=== PATIENT | male | born 1965 | race Two or more races ===

== ENCOUNTER 2018-05-22 16:26 | Emergency (ER) | payer MEDICAID ==
[~2018-05-22] VITALS: Ht 172.7 cm; Wt 77.1 kg
[~2018-05-22 16:26] MED LIST: KEP500T PO; PHE100C PO
[2018-05-22] MEDS ORDERED: SODIUM CHLORIDE 0.9% 1,000 ML IV ONE (16:39)
[2018-05-22] MEDS ORDERED: PHENYTOIN IV DILANTIN 1,000 MG in SODIUM CHL 0.9% 250 ML IV ONE (16:45)
[2018-05-22] MEDS ORDERED: LORazepam 0.5 MG TAB PO ONE (18:00)
[2018-05-22] MEDS ORDERED: PHENYTOIN SODIUM 100 MG CAP PO ONE (18:00)
[2018-05-22 19:00] VITALS: BP 140/81
== END 2018-05-22 19:20 | disposition home or self-care (01) ==
LOC: EDBD 16:26 → ER 16:43
DX: R56.9 Unspecified convulsions (principal); R51 Headache; R53.1 Weakness; R42 Dizziness and giddiness
CPT/HCPCS: 70450; 71045; 96360; 99284; J1165; J7050

== ENCOUNTER 2018-06-14 18:10 | Emergency (ER) | payer MEDICAID ==
[~2018-06-14] VITALS: Ht 172.7 cm; Wt 70.3 kg
[2018-06-14 19:59] LABS: Amphetamine Screen, Urine NEGATIVE (NEGATIVE); Barbiturate Scree,Urine NEGATIVE (NEGATIVE); Benzodiazephine Screen, Urine NEGATIVE (NEGATIVE); Cannabinoid Screen, Urine NEGATIVE (NEGATIVE); Cocaine Screen, Urine NEGATIVE (NEGATIVE); Opiate Scree,Urine NEGATIVE (NEGATIVE); Phencyclidine Screen, Urine NEGATIVE (NEGATIVE)
[2018-06-14] MEDS ORDERED: LEVETIRACETAM INJ 1,000 MG in D5W 5% 100 ML IV ONE (21:00)
[2018-06-14] MEDS ORDERED: SODIUM CHLORIDE 0.9% 1,000 ML IV ONE (21:00)
[2018-06-14] MEDS ORDERED: MULTIPLE VITAMIN 10 ML, MAGNESIUM SULF SDV 50% 8 MEQ in SODIUM CHLORIDE 0.9% 1,000 ML IV SCH (22:00)
[2018-06-14 23:11] LABS: Basophils # (auto) 0.1 uL; Basophils % (auto) 1.3 % (0.0-2.0); Eosinophils # (auto) 0.1 uL; Eosinophils % (auto) 1.3 % (0.0-7.0); Hemoglobin 13.8 g/dL (13.5-17.5); Lymphocytes # (auto) 2.5 uL; Lymphocytes % (auto) 50.3 % (10.0-50.0); Mean Corpuscular Hemoglobin 33.6 pg (28.0-32.0); Mean Corpuscular Hgb Conc. 33.7 g/dL (32.0-36.0); Mean Corpuscular Volume 99.8 fL (80.0-100.0); Monocytes # (auto) 0.2 uL; Monocytes % (auto) 4.1 % (0.0-12.0); Neutrophils # (auto) 2.1 uL; Platelet Count (auto) 178 10^3/uL (140-450); Red Blood Cells 4.11 10^6/uL (4.5-5.90); Red Cell Distribution Width 16.6 % (11.8-14.3)
[2018-06-14 23:26] LABS: Alanine Aminotransferase 67 U/L (16-61); Anion Gap 6 (5-15); Aspartate Aminotransferase 65 U/L (15-37); BUN/Creatinine Ratio 12.9; Blood Urea Nitrogen 9 mg/dL (7-18); Calcium 7.7 mg/dL (8.5-10.1); Carbon Dioxide 31 mmol/L (21-32); Chloride 110 mmol/L (98-107); GFR African American 152 mL/min; GFR Non-African American 126 mL/min; Glucose 92 mg/dL (74-106); Potassium 3.5 mmol/L (3.5-5.1); Sodium 147 mmol/L (136-145)
[2018-06-14 23:39] LABS: Alkaline Phosphatase 80 U/L (45-117); Bilirubin, Total 0.2 mg/dL (0.2-1.0); Total Protein 8.4 g/dL (6.4-8.2)
[2018-06-14 23:44] LABS: Blood Alcohol 427.1 mg/dL (0-5)
[2018-06-15] MEDS ORDERED: MVI in SODIUM CHLORIDE 0.9% 1,010 ML ONE (05:50)
[2018-06-15] MEDS ORDERED: LEVETIRACETAM 500 MG/5ML INJ IV ONE (05:52)
[2018-06-15] MEDS ORDERED: SODIUM CHLORIDE 0.9% 1,000 ML IV ONE (07:00)
[2018-06-15 11:37] VITALS: BP 110/72
== END 2018-06-15 12:24 | disposition home or self-care (01) ==
LOC: EDBD 18:10 → ER 18:12
DX: G40.909 Epilepsy, unspecified, not intractable, without status epilepticus (principal); F10.229 Alcohol dependence with intoxication, unspecified; Z79.899 Other long term (current) drug therapy; Z87.891 Personal history of nicotine dependence
CPT/HCPCS: 36415; 70450; 80053; 80185; 80307; 80320; 84484; 85025; 93005; 96365; 96366; 96367; 99284; J1953; J3411; J3475; J7030; J7060

== ENCOUNTER 2018-10-20 14:12 | Emergency (ER) | payer MEDICAID ==
[~2018-10-20] VITALS: Ht 177.8 cm; Wt 77.1 kg
[~2018-10-20 14:12] MED LIST changes: -KEP500T PO
[2018-10-20] MEDS ORDERED: SODIUM CHLORIDE 0.9% 1,000 ML IV ONE ×2 (14:35)
[2018-10-20] MEDS ORDERED: THIAMINE 100mg/ml INJ (200mg/2ml VIAL) IV ONE (14:45)
[2018-10-20] MEDS ORDERED: chlordiazePOXIDE HCL 5 MG CAP PO ONE (14:45)
[2018-10-20 15:05] LABS: Albumin 4.2 g/dL (3.4-5.0); Calcium 8.3 mg/dL (8.5-10.1); Potassium 3.6 mmol/L (3.5-5.1)
[2018-10-20 15:10] LABS: Basophils # (auto) 0.1 uL; Basophils % (auto) 1.5 % (0.0-2.0); Eosinophils # (auto) 0 uL; Hematocrit 37.5 % (41.0-53.0); Hemoglobin 12.8 g/dL (13.5-17.5); Lymphocytes # (auto) 1.6 uL; Lymphocytes % (auto) 34.8 % (10.0-50.0); Mean Corpuscular Hemoglobin 33.4 pg (28.0-32.0); Mean Corpuscular Hgb Conc. 34.2 g/dL (32.0-36.0); Mean Corpuscular Volume 97.6 fL (80.0-100.0); Monocytes # (auto) 0.3 uL; Monocytes % (auto) 5.6 % (0.0-12.0); Neutrophils # (auto) 2.6 uL; Neutrophils % (auto) 57.1 % (37.0-80.0); Nucleated Red Blood Cells % 0.1 %; Platelet Count (auto) 101 10^3/uL (140-450); Red Blood Cells 3.84 10^6/uL (4.5-5.90); Red Cell Distribution Width 16.2 % (11.8-14.3); White Blood Cell 4.6 10^3/uL (4.4-10.8)
[2018-10-20 15:26] LABS: BUN/Creatinine Ratio 15.9; Bilirubin, Total 0.4 mg/dL (0.2-1.0); Total Protein 8.6 g/dL (6.4-8.2)
[2018-10-20 15:39] LABS: Urine WBC None Seen /hpf (0 - 3)
[2018-10-20 16:07] LABS: Urine Bacteria NONE SEEN /hpf (None Seen); Urine Blood Negative /uL (Negative); Urine Specific Gravity 1.006 (1.001-1.035)
[2018-10-20 16:13] LABS: Amphetamine Screen, Urine NEGATIVE (NEGATIVE); Barbiturate Scree,Urine NEGATIVE (NEGATIVE); Benzodiazephine Screen, Urine NEGATIVE (NEGATIVE); Cannabinoid Screen, Urine NEGATIVE (NEGATIVE); Cocaine Screen, Urine NEGATIVE (NEGATIVE); Phencyclidine Screen, Urine NEGATIVE (NEGATIVE)
[2018-10-20 16:22] LABS: Opiate Scree,Urine NEGATIVE (NEGATIVE)
[2018-10-20] MEDS ORDERED: LEVETIRACETAM 500 MG TAB PO ONE (18:30)
[2018-10-21 14:48] VITALS: BP 119/74
== END 2018-10-21 14:49 | disposition home or self-care (01) ==
LOC: EDUNIT# 14:12 → EDBD 14:12 → ER 14:20
DX: F10.129 Alcohol abuse with intoxication, unspecified (principal); G40.909 Epilepsy, unspecified, not intractable, without status epilepticus; R42 Dizziness and giddiness; R51 Headache; Z87.891 Personal history of nicotine dependence; Y90.8 Blood alcohol level of 240 mg/100 ml or more
CPT/HCPCS: 36415; 70450; 80053; 80307; 80320; 81001; 82542; 85025; 96361; 96374; 99284; J3411; J7030

== ENCOUNTER 2018-11-16 11:38 | Inpatient (IN) | payer MEDICAID ==
[~2018-11-16] VITALS: Ht 170.2 cm; Wt 63.2 kg
[2018-11-16] MEDS ORDERED: SODIUM CHLORIDE 0.9% 1,000 ML IV ONE ×2 (11:47)
[2018-11-16] MEDS ORDERED: chlordiazePOXIDE HCL 5 MG CAP PO ONE (12:00)
[2018-11-16] MEDS ORDERED: THIAMINE 100mg/ml INJ (200mg/2ml VIAL) IV ONE (12:00)
[2018-11-16] MEDS ORDERED: ONDANSETRON HCL 4 MG/2 ML VIAL IV ONE (12:00)
[2018-11-16 13:13] LABS: Basophils # (auto) 0 uL; Basophils % (auto) 0.5 % (0.0-2.0); Eosinophils # (auto) 0 uL; Hematocrit 34.8 % (41.0-53.0); Hemoglobin 11.6 g/dL (13.5-17.5); Lymphocytes # (auto) 0.2 uL; Lymphocytes % (auto) 3.8 % (10.0-50.0); Mean Corpuscular Hgb Conc. 33.3 g/dL (32.0-36.0); Monocytes # (auto) 0.2 uL; Monocytes % (auto) 3.5 % (0.0-12.0); Neutrophils # (auto) 5.1 uL; Neutrophils % (auto) 92.2 % (37.0-80.0); Platelet Count (auto) 73 10^3/uL (140-450); Red Blood Cells 3.51 10^6/uL (4.5-5.90); Red Cell Distribution Width 15.2 % (11.8-14.3); White Blood Cell 5.5 10^3/uL (4.4-10.8)
[2018-11-16 13:28] LABS: INR 1.02 (0.9-1.15); Partial Thromboplastin Time 25.1 sec (23.64-32.05)
[2018-11-16 13:30] LABS: Albumin 4.3 g/dL (3.4-5.0); Anion Gap 13 (5-15); Blood Urea Nitrogen 10 mg/dL (7-18); Calcium 8.6 mg/dL (8.5-10.1); Carbon Dioxide 27 mmol/L (21-32); Chloride 97 mmol/L (98-107); Glucose 101 mg/dL (74-106); Potassium 3.3 mmol/L (3.5-5.1); Sodium 137 mmol/L (136-145)
[2018-11-16 13:37] LABS: Alanine Aminotransferase 60 U/L (16-61); Alkaline Phosphatase 74 U/L (45-117); Aspartate Aminotransferase 118 U/L (15-37); BUN/Creatinine Ratio 13.5; Blood Alcohol < 3.0 mg/dL (0-5); GFR African American 143 mL/min; GFR Non-African American 118 mL/min; Total Protein 8.5 g/dL (6.4-8.2)
[2018-11-16] MEDS ORDERED: cefTRIAXone 1GM/50ML D5W 50 ML IV ONE (16:15)
[2018-11-16] MEDS ORDERED: MORPHINE SULF INJ 2 MG/ML SYRINGE 1ML IV PRN ×2 (16:45)
[2018-11-16] MEDS ORDERED: LORazepam 2MG/ML-1ML VIAL IV PRN (16:45)
[2018-11-16] MEDS ORDERED: cloNIDine HCL 0.1 MG TAB PO PRN (16:45)
[2018-11-16] MEDS ORDERED: NITROGLYCERIN 0.4 MG SL TAB SL PRN (16:45)
[2018-11-16] MEDS ORDERED: ONDANSETRON HCL 4 MG/2 ML VIAL IV PRN (16:45)
[2018-11-16] MEDS ORDERED: HYDROcodone-ACET 5/325MG TAB PO PRN (16:45)
[2018-11-16] MEDS ORDERED: ACETAMINOPHEN 500 MG TAB PO PRN (16:45)
[2018-11-16] MEDS ORDERED: IPRATROPIUM BROM 0.5 MG/2.5ML INH SOL NEB SCH (18:00)
[2018-11-16] MEDS ORDERED: ALBUTEROL SULF 2.5 MG/0.5ML(0.5%) NEB SOLN NEB SCH (18:00)
--- NOTE | 2018-11-16 18:17 | NUR ---
Telemetry admit from ER MARILY LASSITER admitted to Telemetry unit after SBAR received. Patient oriented to Julia Hanson RN primary RN, unit, room, bed, and unit policies regarding patient care and visiting hours. Patient now on continuous telemetry monitoring, tele box #9. Patient weighed by bed scale and encouraged to call if they need something. All questions and concerns addressed, patient verbalized understanding. Note: Patient temp 100.4, vomiting and nausea upon arrival. Cooling measures applied, will medicate as ordered. Iv line flushed, patent, no redness.
[2018-11-16] MEDS: chlordiazePOXIDE HCL 5 MG CAP PO SCH ×2 (18:19→21:34)
[2018-11-16] MEDS: LEVOFLOXACIN 500 MG TAB PO SCH (18:21)
[2018-11-16 18:57] VITALS: BP 139/90
[2018-11-16] MEDS: FOLIC ACID 1 MG, MULTIPLE VITAMIN 10 ML, MAGNESIUM SULF SDV 50% 8 MEQ, THIAMINE INJ 100... INJ SCH ×5 (19:00)
--- NOTE | 2018-11-16 19:00 | NUR ---
Opening Shift Note Assumed care of patient, awake and alert. No S/S of distress/SOB or pain. Instructed on POC and to call for assist PRN, will continue to monitor for changes Q1hr and PRN.
--- NOTE | 2018-11-16 19:56 | NUR ---
Respiratory note: ASSESSMENT FOR PRN MED NEB TX. HR 84, SPO2 93% ON ROOM AIR, RR 18, BS DIMINISHED. PT PRESENTING NO RESPIRATORY DISTRESS AT THIS TIME, PT AWARE TO HAVE RN PAGE RT IF MED ENB TX IS NEEDED, WILL CONTINUE TO MONITOR.
[2018-11-16 20:16] VITALS: BP 139/90
[2018-11-16] MEDS: NYSTATIN TOPICAL CREAM 15GM TOP SCH (21:34)
[2018-11-16] MEDS: DOCUSATE SOD 100 MG CAP PO SCH (21:34)
[2018-11-16] MEDS ORDERED: LEVETIRACETAM 500 MG/5ML INJ IV ONE (22:06)
[2018-11-16] MEDS: LEVETIRACETAM INJ 1,000 MG in D5W 5% 100 ML IV SCH (22:22)
[2018-11-17] MEDS: chlordiazePOXIDE HCL 5 MG CAP PO SCH ×4 (05:31→21:32)
[2018-11-17 05:34] VITALS: BP 122/75
[2018-11-17 05:55] LABS: Urine WBC None Seen /hpf (0 - 3)
[2018-11-17 06:11] LABS: Urine Bacteria NONE SEEN /hpf (None Seen); Urine Blood Negative /uL (Negative); Urine Specific Gravity 1.005 (1.001-1.035)
[2018-11-17 06:58] LABS: Basophils # (auto) 0 uL; Basophils % (auto) 0.5 % (0.0-2.0); Eosinophils # (auto) 0 uL; Eosinophils % (auto) 0.3 % (0.0-7.0); Hemoglobin 11.6 g/dL (13.5-17.5); Lymphocytes # (auto) 0.8 uL; White Blood Cell 5.6 10^3/uL (4.4-10.8)
[2018-11-17 07:01] LABS: Hematocrit 34.6 % (41.0-53.0); Lymphocytes % (auto) 15.2 % (10.0-50.0); Mean Corpuscular Hemoglobin 33.2 pg (28.0-32.0); Mean Corpuscular Hgb Conc. 33.6 g/dL (32.0-36.0); Mean Corpuscular Volume 98.7 fL (80.0-100.0); Monocytes # (auto) 0.5 uL; Monocytes % (auto) 8.6 % (0.0-12.0); Neutrophils # (auto) 4.2 uL; Neutrophils % (auto) 75.4 % (37.0-80.0); Nucleated Red Blood Cells % 0.1 %; Platelet Count (auto) 59 10^3/uL (140-450); Red Blood Cells 3.51 10^6/uL (4.5-5.90); Red Cell Distribution Width 15.5 % (11.8-14.3)
[2018-11-17 07:13] LABS: BUN/Creatinine Ratio 12.9; Calcium 8.5 mg/dL (8.5-10.1); Potassium 3.2 mmol/L (3.5-5.1)
--- NOTE | 2018-11-17 07:30 | NUR ---
Open Shift Note Received report on patient, awake and lying in bed. Patient's linens soiled. Helped patient to ambulate to restroom, had bowel movement and stated it was diarrhea. Bed linens changed and patient ambulated with assistance back to bed. Discussed POC with patient. Bed in lowest locked position, side rails up x2 and call light within reach. Will continue to monitor.
[2018-11-17 08:00] VITALS: BP 127/82
[2018-11-17] MEDS: DOCUSATE SOD 100 MG CAP PO SCH ×2 (10:00→21:32)
[2018-11-17] MEDS: FAMOTIDINE 20 MG TAB PO SCH (10:58)
[2018-11-17] MEDS: LEVOFLOXACIN 500 MG TAB PO SCH (10:58)
[2018-11-17] MEDS: LEVETIRACETAM INJ 1,000 MG in D5W 5% 100 ML IV SCH (10:58)
[2018-11-17] MEDS: NYSTATIN TOPICAL CREAM 15GM TOP SCH ×2 (11:10→21:33)
--- NOTE | 2018-11-17 11:30 | NUR ---
WOUND CARE NOTE: PATIENT ADMITTED TO [facility] WITH DIAGNOSIS OF BREAKTHROUGH SEIZURES. CURRENT PENG SCORE IS 21. PATIENT IS ABLE TO AMBULATE, SELF TURN/REPOSITION SELF WHEN IN BED. PATIENT NOTED UPON ADMIT TO HAVE SKIN INTEGRITY ISSUES CONSISTING OF AN INTACT CALLOUSED CORN TO THE LEFT # 2 TOE, AN INTACT RASH TO THE GROIN, AND SKIN PATCHES TO BILATERAL LOWER EXTREMITIES. ALL SKIN INTEGRITY AREAS PHOTOGRAPHED UPON ADMIT BY BEDSIDE NURSE FOR REFERENCE. ALL AREAS LEFT OPEN TO AIR. HOSPITALIST HAS ORDERED FOR ANTIFUNGAL CREAM FOR HIS SKIN RASH/PATCH AREAS, NO DRESSING REQUIRED FOR CORN ON TOE. NO NEED FOR WOUND CARE TEAM AT THIS TIME.
[2018-11-17 12:00] VITALS: BP 129/69
--- NOTE | 2018-11-17 12:04 | NUR ---
Received referral to see pt as he is homeless. Pt is alert and oriented times 3. Pt states he lives in [place]. He has a sister up here in the [facility] but cannot live there. Pt states he cannot get his medicine for his seizures so he has been unable to get them under control. Pt's last 5 admission to the hospital have been for non compliance. Pt has medi-lupe but states he has been unable to get his prescription. iron worker apprentice explained that all he has to do is show his medi-lupe card. Pt has no income and did not file the paperwork to get food stamps. Pt will not be able to go into the [facility] as he has no ID. Gave pt resources.
[2018-11-17] MEDS: FOLIC ACID 1 MG, MULTIPLE VITAMIN 10 ML, MAGNESIUM SULF SDV 50% 8 MEQ, THIAMINE INJ 100... INJ SCH ×5 (12:30)
[2018-11-17 16:00] VITALS: BP 120/68
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
--- NOTE | 2018-11-17 18:58 | NUR ---
End of Shift Patient lying in bed, showing no signs of distress at this time. Bed in lowest locked position, side rails up x2 and call light within reach. Endorsed care to [facility] nurse Dawson.
[2018-11-17] MEDS: POTASSIUM CHL 20 Meq TABLET PO SCH (21:32)
[2018-11-17] MEDS: LEVETIRACETAM 500 MG TAB PO SCH (21:32)
[2018-11-17 22:00] VITALS: BP 115/77
--- NOTE | 2018-11-18 01:55 | NUR ---
REINALDO called: REINALDO called RN regarding patient's HR being in the 140's. RN checked on patient and patient was noted to be in the restroom having a BM. Patient made a large mess on the bathroom floor and was attempting to clean up the mess. RN helped patient back into bed and HR was noted to return to normal and in the 90's. Patient comfortable with no complaints of pain or distress.
[2018-11-18 05:00] VITALS: BP 118/78
[2018-11-18] MEDS: chlordiazePOXIDE HCL 5 MG CAP PO SCH ×2 (05:41→12:34)
--- NOTE | 2018-11-18 07:25 | NUR ---
Open Shift Note Received report on patient, asleep in bed with covers over head. Patient easily awoken, shows no signs of distress at this time. Patient states they feel as if one of their medications is causing them to have multiple bowel movements and would like to bring it up to the doctor today. Discussed POC with patient. Bed in lowest locked position, side rails up x2 and call light within reach. Will continue to monitor.
--- NOTE | 2018-11-18 07:30 | NUR ---
Respiratory UNABLE TO ASSESS PATIENT PRN DUE TO PATIENT NOT BEING IN ROOM.
[2018-11-18 08:00] VITALS: BP 118/76
[2018-11-18] MEDS: FAMOTIDINE 20 MG TAB PO SCH (09:45)
[2018-11-18] MEDS: POTASSIUM CHL 20 Meq TABLET PO SCH (09:45)
[2018-11-18] MEDS: LEVOFLOXACIN 500 MG TAB PO SCH (09:45)
[2018-11-18] MEDS: NYSTATIN TOPICAL CREAM 15GM TOP SCH (09:45)
[2018-11-18] MEDS: LEVETIRACETAM 500 MG TAB PO SCH (09:45)
[2018-11-18] MEDS: DOCUSATE SOD 100 MG CAP PO SCH (09:47)
[2018-11-18] MEDS ORDERED: POTASSIUM CHL 10 Meq TABLET PO ONE (11:30)
[2018-11-18 12:00] VITALS: BP 102/61
[2018-11-18] MEDS: FOLIC ACID 1 MG, MULTIPLE VITAMIN 10 ML, MAGNESIUM SULF SDV 50% 8 MEQ, THIAMINE INJ 100... INJ SCH ×5 (12:00)
--- NOTE | 2018-11-18 14:00 | NUR ---
Respiratory note: UNABLE TO ASSESS PATIENT FOR A/AQ4 PRN, DUE TO PATIENT BEING DISCHARGED.
--- NOTE | 2018-11-18 14:05 | NUR ---
Patient Refused Discharge Photos Patient stated "I just put my pants on and it was really difficult". Patient refused for photos to be taken of legs and foot.
--- NOTE | 2018-11-18 14:25 | NUR ---
Discharged Discharge instructions given as ordered. Patient has no primary care provider but was given information for Josee Salmeron to help set up provider. All questions and concerns addressed. Patient verbalized understanding. Prescriptions given to patient. IV removed with catheter intact, pressure dressing applied. Patient given bus pass and stated he has a place he can go to stay. Telemetry unit returned to REINALDO. Patient taken to lobby via wheelchair with all personal belongings, accompanied by staff. No distress noted at time of departure.
== END 2018-11-18 16:02 | disposition home or self-care (01) | DRG 53 ==
LOC: EDBD 11:38 → ER 11:43 → TELE 11:44 → TELE-EAST 18:10
PROVIDERS: ADMIT Nurse Practitioner Acute Care; ATTEND Internal Medicine Pulmonary Disease
DX: G40.509 Epileptic seizures related to external causes, not intractable, without status epilepticus (principal); E87.1 Hypo-osmolality and hyponatremia; F10.230 Alcohol dependence with withdrawal, uncomplicated; E87.6 Hypokalemia; L03.031 Cellulitis of right toe; Z59.0 Homelessness; Z80.0 Family history of malignant neoplasm of digestive organs; Z82.49 Family history of ischemic heart disease and other diseases of the circulatory system; Z91.14 Patient's other noncompliance with medication regimen; Z87.891 Personal history of nicotine dependence; Z79.899 Other long term (current) drug therapy; Y90.9 Presence of alcohol in blood, level not specified
CPT/HCPCS: 36415; 70450; 71045; 80048; 80053; 80320; 81001; 83735; 84132; 84484; 85025; 85610; 85730; 87081; 93005; 96361; 96365; 96375; G0378; J0696; J2405; J7060

== ENCOUNTER 2019-02-21 16:30 | Inpatient (IN) | payer MEDICAID ==
[~2019-02-21] VITALS: Ht 160 cm; Wt 70.7 kg
[2019-02-21 17:48] LABS: Basophils # (auto) 0.1 uL; Eosinophils # (auto) 0.1 uL; Lymphocytes # (auto) 0.8 uL; Monocytes # (auto) 0.5 uL; Monocytes % (auto) 8.3 % (0.0-12.0)
[2019-02-21 17:49] LABS: Basophils % (auto) 1.1 % (0.0-2.0); Eosinophils % (auto) 1.5 % (0.0-7.0); Hematocrit 34.2 % (41.0-53.0); Hemoglobin 11.4 g/dL (13.5-17.5); Lymphocytes % (auto) 11.9 % (10.0-50.0); Mean Corpuscular Hgb Conc. 33.5 g/dL (32.0-36.0); Mean Corpuscular Volume 98.3 fL (80.0-100.0); Neutrophils # (auto) 5.1 uL; Neutrophils % (auto) 77.2 % (37.0-80.0); Platelet Count (auto) 164 10^3/uL (140-450); Red Blood Cells 3.47 10^6/uL (4.5-5.90); Red Cell Distribution Width 18.2 % (11.8-14.3); White Blood Cell 6.6 10^3/uL (4.4-10.8)
[2019-02-21 18:06] LABS: Albumin 3.5 g/dL (3.4-5.0); Anion Gap 9 (5-15); Aspartate Aminotransferase 132 U/L (15-37); BUN/Creatinine Ratio 12.1; Blood Urea Nitrogen 7 mg/dL (7-18); Calcium 8.2 mg/dL (8.5-10.1); Carbon Dioxide 27 mmol/L (21-32); Chloride 107 mmol/L (98-107); GFR African American 188 mL/min; GFR Non-African American 156 mL/min; Glucose 140 mg/dL (74-106); Potassium 3.3 mmol/L (3.5-5.1); Sodium 143 mmol/L (136-145)
[2019-02-21 18:08] LABS: Lactic Acid w/Reflex 3.4 mmol/L (0.4-2.0)
[2019-02-21 18:11] LABS: Alanine Aminotransferase 70 U/L (16-61); Alkaline Phosphatase 76 U/L (45-117); Bilirubin, Total 0.3 mg/dL (0.2-1.0); Total Protein 7.9 g/dL (6.4-8.2)
[2019-02-22] MEDS ORDERED: VANCOMYCIN PER PHARMACY 0 MG IV SCH (03:15)
[2019-02-22] MEDS ORDERED: SODIUM CHLORIDE 0.9% 2,200 ML IV ONE (03:15)
[2019-02-22] MEDS ORDERED: VANCOMYCIN 1GM/250ML 250 ML IV ONE (04:00)
[2019-02-22] MEDS: PIPERACILLIN-TAZOB 3.375GM 100 ML IV SCH ×3 (04:27→17:22)
[2019-02-22 04:52] LABS: INR 0.95 (0.9-1.15); Partial Thromboplastin Time 24.8 sec (23.64-32.05)
[2019-02-22 05:51] LABS: Albumin 3.3 g/dL (3.4-5.0); BUN/Creatinine Ratio 13.3; Calcium 7.9 mg/dL (8.5-10.1); Potassium 3.6 mmol/L (3.5-5.1)
[2019-02-22 05:54] LABS: Bilirubin, Total 0.3 mg/dL (0.2-1.0); Total Protein 7.7 g/dL (6.4-8.2)
[2019-02-22 08:21] LABS: Urine WBC None Seen /hpf (0 - 3)
[2019-02-22 08:45] LABS: Urine Bacteria NONE SEEN /hpf (None Seen); Urine Blood Negative /uL (Negative); Urine Specific Gravity 1.017 (1.001-1.035)
[2019-02-22] MEDS ORDERED: MORPHINE SULF INJ 2 MG/ML SYRINGE 1ML IV PRN (10:00)
[2019-02-22] MEDS ORDERED: NITROGLYCERIN 0.4 MG SL TAB SL PRN (10:00)
[2019-02-22] MEDS ORDERED: DEXTROSE (50%) 50ML SYRG IV PRN (10:00)
[2019-02-22] MEDS ORDERED: LACTULOSE 20Gm/30ML SOLN PO PRN (10:00)
[2019-02-22] MEDS ORDERED: PROMETHAZINE HCL 25 MG/ML 1ML IV PRN (10:00)
[2019-02-22] MEDS ORDERED: TEMAZEPAM 15 MG CAP PO PRN (10:00)
[2019-02-22] MEDS ORDERED: LORazepam 0.5 MG TAB PO PRN (10:00)
[2019-02-22] MEDS ORDERED: chlordiazePOXIDE HCL 25 MG CAP PO PRN (10:15)
[2019-02-22] MEDS ORDERED: THIAMINE 100mg/ml INJ (200mg/2ml VIAL) IV ONE (10:15)
[2019-02-22] MEDS: SODIUM CHLORIDE 0.9% 1,000 ML IV SCH ×2 (10:55→20:38)
[2019-02-22] MEDS: ENOXAPARIN SOD 40 MG/0.4 ML SYRINGE SC SCH (10:55)
[2019-02-22] MEDS: InsuLIN REG 1unit/0.01ml Soln (100units/ml) SC SCH ×3 (11:30→21:02)
--- NOTE | 2019-02-22 12:09 | NUR ---
PT ADMITTED TO FLOOR VIA GURNEY FROM E.R.. PT REPORTS 8/10 PAIN IN BILATERAL LOWER EXTREMITIES. LEGS BANDAGED IN E.R. ER NURSE REPORTS PHOTOS ALREADY TAKEN OF WOUNDS. PT ORIENTED TO CALL LIGHT AND UNIT. BED IN LOWEST LOCKED POSITION, SIDE RAILS UP X2. VITALS: BP 130/81, HR 97, RR 20, 02 95, T 99.2. WILL CONTINUE TO MONITOR.
[2019-02-22] MEDS: ACCU-CHEK COMFORT CURVE STRIP VI SCH ×3 (12:42→21:02)
[2019-02-22] MEDS: chlordiazePOXIDE HCL 5 MG CAP PO SCH ×3 (12:43→19:15)
[2019-02-22] MEDS ORDERED: CHL10C PO (12:51)
[2019-02-22] MEDS ORDERED: LEVE500T22 PO (12:51)
[2019-02-22] MEDS: ACETAMINOPHEN 500 MG TAB PO PRN ×2 (13:56→21:36)
--- NOTE | 2019-02-22 14:29 | NUR ---
WOUND CARE PT RIGHT AND LEFT LEG WOUNDS CLEANSED WITH WOUND CLEANSER, PATTED DRY WITH 4X4 GAUZE. THERAHONEY APPLIED, AND COVERED WITH OPTIFOAM AND KERLIX.
[2019-02-22 17:00] VITALS: BP 126/77
--- NOTE | 2019-02-22 19:14 | NUR ---
SEIZURE MYSQL DATABASE ADMINISTRATOR REPORTS PT USED CALL LIGHT TO USE COMMODE. ENTERED ROOM, PT LAYING SIDEWAYS ON BED, FEET TOUCHING FLOOR. PT SHAKING AND NOT RESPONDING TO QUESTIONS OR SHAKING. PT URINATED ON CLOTHES AND BED. CALLED FOR HELP. 02 PUT ON PATIENT AT 2L NC, PATIENT LEGS PLACED BACK ON BED. [id number], HR 103, 02 98, 100.3, RR 18. PT BECAME RESPONSIVE TO QUESTIONS WITHIN A FEW MINUTES BUT REMAINED CONFUSED, PT KNEW NAME AND , BUT NOT WHEREABOUTS OR PRESIDENT. NO IV ATIVAN AVAILABLE. ATTEMPTED TO GIVE PT PRN ANXIETY ATIVAN AND PT SPIT IT OUT. CHANGED PT BEDDING AND CLEANED PATIENT. PT BECAME MORE ALERT. ATTEMPTED TO GIVE ATIVAN AGAIN, PT ACCEPTED. ORIGINAL BED ALARM WAS BROKEN AND KEPT SOUNDING ONCE BED WAS TURNED ON, BED REPLACED WITH ALARM ON. PAGED HOSPITALIST, DR RENNER CALLED BACK. NOTIFIED PT HAD A SEIZURE AND WAS CONFUSED. REQUESTED ATIVAN IV. AWARE AND REPORTS HE WILL PUT IN ORDERS. Addendum: 02/22/19 at 1928 by JOHNNIE DIAZ RN SIDE RAILS PADDED, BED IN LOWEST LOCKED POSITION, SIDE RAILS UP X2, CALL LIGHT IN REACH.
[2019-02-22] MEDS: LEVETIRACETAM 500 MG TAB PO SCH ×2 (19:15→20:49)
[2019-02-22] MEDS ORDERED: LORazepam 2MG/ML-1ML VIAL IV PRN (19:15)
[2019-02-22] MEDS ORDERED: chlordiazePOXIDE HCL 25 MG CAP PO ONE (19:15)
--- NOTE | 2019-02-22 19:50 | NUR ---
Opening Shift Note Assumed care of patient, awake and alert, oriented x 4, follows direction, clear speech. On oxygen at 2L via NC, even and unlabored respirations, no S/S of distress. Dressing to bilateral legs clean, dry and intact. Patient turns independently in bed. Bed low locked position with side rails up x 2 and call light within reach, bed alarm on. Instructed on POC and to call for assist PRN, will continue to monitor for changes Q1hr and PRN.
[2019-02-22] MEDS: VANCOMYCIN 1,250 MG in D5W 5% 250 ML IV SCH (20:58)
[2019-02-22] MEDS ORDERED: PHENYTOIN SODIUM 100 MG CAP PO SCH (22:00)
[2019-02-22 23:20] VITALS: BP 127/73
[2019-02-23] MEDS: chlordiazePOXIDE HCL 5 MG CAP PO SCH ×4 (00:42→18:00)
[2019-02-23] MEDS: PIPERACILLIN-TAZOB 3.375GM 100 ML IV SCH ×4 (00:42→18:00)
[2019-02-23 05:15] LABS: Basophils # (auto) 0 uL; Basophils % (auto) 0.8 % (0.0-2.0); Eosinophils # (auto) 0 uL; Eosinophils % (auto) 0.5 % (0.0-7.0); Hematocrit 32.9 % (41.0-53.0); Hemoglobin 11.1 g/dL (13.5-17.5); Lymphocytes # (auto) 0.8 uL; Lymphocytes % (auto) 13.6 % (10.0-50.0); Mean Corpuscular Hemoglobin 33.3 pg (28.0-32.0); Mean Corpuscular Hgb Conc. 33.8 g/dL (32.0-36.0); Mean Corpuscular Volume 98.5 fL (80.0-100.0); Monocytes # (auto) 0.7 uL; Monocytes % (auto) 12.1 % (0.0-12.0); Neutrophils # (auto) 4.1 uL; Platelet Count (auto) 135 10^3/uL (140-450); Red Blood Cells 3.34 10^6/uL (4.5-5.90); Red Cell Distribution Width 17.5 % (11.8-14.3); White Blood Cell 5.6 10^3/uL (4.4-10.8)
[2019-02-23 05:22] VITALS: BP 128/68
[2019-02-23 05:57] LABS: Anion Gap 7 (5-15); Carbon Dioxide 28 mmol/L (21-32); Chloride 103 mmol/L (98-107); Glucose 89 mg/dL (74-106); Potassium 4.1 mmol/L (3.5-5.1); Sodium 138 mmol/L (136-145)
[2019-02-23 05:58] LABS: Alanine Aminotransferase 43 U/L (16-61); Albumin 2.9 g/dL (3.4-5.0); Alkaline Phosphatase 67 U/L (45-117); Aspartate Aminotransferase 54 U/L (15-37); BUN/Creatinine Ratio 16.4; Bilirubin, Total 1.1 mg/dL (0.2-1.0); Blood Urea Nitrogen 9 mg/dL (7-18); Calcium 8.2 mg/dL (8.5-10.1); GFR African American 200 mL/min; GFR Non-African American 166 mL/min
[2019-02-23] MEDS: SODIUM CHLORIDE 0.9% 1,000 ML IV SCH ×2 (06:28→18:12)
[2019-02-23] MEDS: ACCU-CHEK COMFORT CURVE STRIP VI SCH ×3 (06:30→17:00)
[2019-02-23] MEDS: InsuLIN REG 1unit/0.01ml Soln (100units/ml) SC SCH ×3 (06:30→17:00)
--- NOTE | 2019-02-23 06:56 | NUR ---
Closing Note patient resting in bed with even and unlabored respirations, no s/s of distress. Bed low locked position with padded side rails up x 2 and call light within reach, bed alarm on. Seizure precautions in place. Endorsed care to day shift RN.
[2019-02-23 09:00] VITALS: BP 114/69
[2019-02-23] MEDS: VANCOMYCIN 1,250 MG in D5W 5% 250 ML IV SCH (09:54)
[2019-02-23] MEDS: LEVETIRACETAM 500 MG TAB PO SCH (09:55)
[2019-02-23] MEDS: ENOXAPARIN SOD 40 MG/0.4 ML SYRINGE SC SCH (09:55)
[2019-02-23] MEDS ORDERED: THIAMINE 100mg/ml INJ (200mg/2ml VIAL) IV SCH (10:00)
[2019-02-23] MEDS ORDERED: MULTIPLE VITAMINS W/ MINERALS TAB PO ONE (10:30)
[2019-02-23] MEDS ORDERED: FOLIC ACID 1 MG TAB PO ONE (10:30)
--- NOTE | 2019-02-23 11:37 | NUR ---
DR SCHULTE REPORTS HE SPOKE WITH PATIENT. PT REPORTED TO MD HE DOES NOT WANT TO GO TO SNF BECAUSE HE WANTS TO DRINK AND IT WON'T BE ALLOWED THERE. MD REPORTS PT SAYS HE WOULD LIKE A TAXI VOUCHER TO GO TO [facility] AND DR SCHULTE IS CALLING IN PRESCRIPTIONS TO PATIENT'S PHARMACY.
[2019-02-23] MEDS ORDERED: FOLI1TAB6 PO (12:15)
[2019-02-23] MEDS ORDERED: AMOX500T86 PO (12:15)
[2019-02-23] MEDS ORDERED: THIA100T10 PO (12:15)
[2019-02-23] MEDS ORDERED: MULT-351 PO (12:15)
[2019-02-23] MEDS ORDERED: LEVE500T22 PO (12:15)
[2019-02-23] MEDS ORDERED: PHE100C PO (12:15)
[2019-02-23 13:00] VITALS: BP 122/57
[2019-02-23] MEDS: ACETAMINOPHEN 500 MG TAB PO PRN (13:52)
[2019-02-23 14:41] VITALS: BP 122/57
--- NOTE | 2019-02-23 14:58 | NUR ---
CALLED DR SCHULTE TO CLARIFY PRESCRIPTIONS, REPORTS HE SENT PRESCRIPTION TO [facility] CALLED [facility], THEY REPORT THE STUDENTS BROUGHT THEM UP TO THE PATIENT AND THE MEDICATIONS ARE AT BEDSIDE.
--- NOTE | 2019-02-23 15:00 | NUR ---
CALLED VOLUNTEER ASSISTANT AND REQUESTED TAXI VOUCHER, AWAITING VOUCHER.
--- NOTE | 2019-02-23 15:05 | NUR ---
PT REPORTS HE RECEIVED HIS MEDICATIONS FROM PHARMACY. PT EDUCATED ON WOUND CARE AND GIVEN: WOUND CLEANSER, 4X4'S, ABD PADS AND KERLIX FOR DRESSING CHANGES TO TAKE HOME.
--- NOTE | 2019-02-23 15:14 | NUR ---
assessment Patient is a 54 year old male who is alert and oriented. Prior to admission patient was homeless for the past year per patient. Patient sleeps [address] in [place]. Patient has a rollator for his personal use. Patient informed me he is independent with his ADL's. Patient has no PCP. Josee Baumann to see patient for PCP. Marilin Lizarraga [address] has seen patient for homeless resources and information. Patient has also been provided with [facility] assisted address and phone number Patient has been provided with homeless resources for government agencies such as [employer], department of social service, [employer], [employer], Also part of the resource has information on various homeless shelters, behavioral health and crisis center, various churches, and laundry facilities. Patient has been provided with clothing appropriate for the season. Patient wants to be discharged back to the street. Patient has signed homeless waiver with Marilin QUEZADA. Patient verbalized understanding and agreed to discharge plan back homeless. Addendum: 02/23/19 at 1522 by Josee DAS Amended: Links added.
--- NOTE | 2019-02-23 16:03 | NUR ---
WOUND CARE WOUNDS CLEANSED WITH WOUND CLEANSER ON BILATERAL LEGS. PATTED DRY WITH 4X4'S. ABD PADS APPLIED WITH KERLIX WRAP. DC PHOTOS OF WOUNDS TAKEN.
[2019-02-23 17:00] VITALS: BP 113/66
--- NOTE | 2019-02-23 17:43 | NUR ---
CALLED [employer], THEY REPORT THEY WILL BE HERE IN 45 MINS TO 1 HOUR TO MANAGER BEVERAGE PATIENT.
--- NOTE | 2019-02-23 18:40 | NUR ---
Discharge instructions given as ordered. Encourage to follow up with PMD as instructed. All questions and concerns addressed. Patient verbalized understanding. Medication reconciliation form completed and copy given to patient. IV removed with catheter intact, pressure dressing applied. Telemetry unit returned to ICU. Patient taken to taxi via wheelchair with all personal belongings, accompanied by staff. No distress noted at time of departure.
[2019-02-24] MEDS ORDERED: FOLIC ACID 1 MG TAB PO SCH (10:00)
[2019-02-24] MEDS ORDERED: MULTIPLE VITAMINS W/ MINERALS TAB PO SCH (10:00)
== END 2019-02-23 19:26 | disposition home or self-care (01) | DRG 720 ==
LOC: EDBD 16:30 → ER 16:30 → TELE 16:31 → TELE-WESTW 02-22 11:10
PROVIDERS: ADMIT Internal Medicine; ATTEND Internal Medicine
DX: A41.9 Sepsis, unspecified organism (principal); R56.9 Unspecified convulsions; L03.115 Cellulitis of right lower limb; E87.6 Hypokalemia; R73.9 Hyperglycemia, unspecified; L03.116 Cellulitis of left lower limb; F10.229 Alcohol dependence with intoxication, unspecified; S80.822A Blister (nonthermal), left lower leg, initial encounter; S80.821A Blister (nonthermal), right lower leg, initial encounter; X58.XXXA Exposure to other specified factors, initial encounter; F19.10 Other psychoactive substance abuse, uncomplicated; Z59.0 Homelessness; Z80.0 Family history of malignant neoplasm of digestive organs; Z82.49 Family history of ischemic heart disease and other diseases of the circulatory system; Z91.19 Patient's noncompliance with other medical treatment and regimen; Y93.89 Activity, other specified; Y92.89 Other specified places as the place of occurrence of the external cause; Y99.8 Other external cause status
CPT/HCPCS: 36415; 36600; 71045; 71250; 73590; 73620; 80053; 80320; 81001; 82805; 82962; 83036; 83605; 83880; 84484; 85025; 85379; 85610; 85652; 85730; 87040; 87086; 94761; 96365; 96372; 96375; G0378; J2543; J7060

== ENCOUNTER 2019-03-01 17:21 | Emergency (ER) | payer MEDICAID ==
[~2019-03-01] VITALS: Ht 170.2 cm; Wt 59.0 kg
[~2019-03-01 17:21] MED LIST changes: +AMOX500T86 PO; +CHL10C PO; +FOLI1TAB6 PO; +LEVE500T22 PO; +MULT-351 PO; +THIA100T10 PO
[2019-03-01 19:00] VITALS: BP 99/60
[2019-03-01 19:22] LABS: Calcium 8.8 mg/dL (8.5-10.1); Potassium 3.4 mmol/L (3.5-5.1)
[2019-03-01 19:24] LABS: Albumin 3.4 g/dL (3.4-5.0); BUN/Creatinine Ratio 10.9
[2019-03-01 19:27] LABS: Bilirubin, Total 0.2 mg/dL (0.2-1.0); Total Protein 7.7 g/dL (6.4-8.2)
[2019-03-01] MEDS ORDERED: SODIUM CHLORIDE 0.9% 1,000 ML IV ONE (20:45)
== END 2019-03-01 21:20 | disposition home or self-care (01) ==
LOC: EDBD 17:21 → ER 17:25
DX: G40.909 Epilepsy, unspecified, not intractable, without status epilepticus (principal); F10.129 Alcohol abuse with intoxication, unspecified; Z87.891 Personal history of nicotine dependence
CPT/HCPCS: 36415; 80053; 80185; 80320; 82962; 94761; 99283; J7030